=== PATIENT | male | born 2000 | race Two or more races ===

== ENCOUNTER 2025-04-29 11:29 | Emergency (ER) | payer OTHER ==
[~2025-04-29] VITALS: Ht 180.3 cm; Wt 92.3 kg
[2025-04-29 12:12] VITALS: TEMP 97.9
[2025-04-29 14:30] VITALS: BP 129/71; PULSE 66; RESP 16; O2SAT 100
[2025-04-29] MEDS: OFLOXACIN 0.3% 5 ML OTIC SOLUTION AU ONE (14:53)
== END 2025-04-29 15:05 | disposition home or self-care (01) ==
LOC: EMS 11:29
DX: T16.1XXA Foreign body in right ear, initial encounter (principal); T16.2XXA Foreign body in left ear, initial encounter; H91.92 Unspecified hearing loss, left ear; W44.F9XA Other object of natural or organic material, entering into or through a natural orifice, initial encounter; Y93.89 Activity, other specified; Y92.89 Other specified places as the place of occurrence of the external cause; Y99.8 Other external cause status
CPT/HCPCS: 99284; Z7502; Z7610